=== PATIENT | male | born 1975 | race Hispanic/Latino ===

== ENCOUNTER 2022-02-23 20:03 | Emergency (ER) | payer OTHER ==
[~2022-02-23] VITALS: Ht 170.2 cm; Wt 73.0 kg
[2022-02-23] VITALS (7 sets, daily range): BP systolic 115–137; BP diastolic 73–82
[2022-02-24] VITALS: BP 116/73
[2022-02-24 00:21] VITALS: BP 116/73
== END 2022-02-24 00:22 | DRG 914 ==
LOC: ED 20:03
DX: S68.021A Partial traumatic metacarpophalangeal amputation of right thumb, initial encounter (principal); V48.1XXA Car passenger injured in noncollision transport accident in nontraffic accident, initial encounter; S53.094A Other dislocation of right radial head, initial encounter